=== PATIENT | female | born 1955 | race Caucasian/White ===

== ENCOUNTER 2021-10-31 17:47 | Emergency (ER) | payer MEDICARE ==
[~2021-10-31] VITALS: Ht 165.1 cm; Wt 116.0 kg
[2021-10-31] MEDS ORDERED: MAGNESIUM/ALUMINUM HYDROXIDE/SIMETHICONE 30ML UDC PO STA (17:53)
[2021-10-31] MEDS ORDERED: VISCOUS LIDOCAINE 2% 15 ML UDC PO STA (17:53)
[2021-10-31] MEDS ORDERED: ONDANSETRON HCL 4MG/2ML INJ IV STA (17:53)
[2021-10-31] MEDS ORDERED: PANTOPRAZOLE SODIUM 40 MG/VIAL IV STA (17:53)
[2021-10-31] MEDS ORDERED: SODIUM CHLORIDE 0.9% 1,000 ML IV ONE (18:00)
[2021-10-31 19:50] LABS: BASOPHILS % 0.2 % (0.0-2.0); EOSINOPHILS % 0.1 % (0.0-5.0); HEMATOCRIT. 42.3 % (36.0-48.0); LYMPHOCYTES % 8.4 % (20.0-50.0); MEAN CORPUSCULAR HEMOGLOBIN 26.5 pg (28.0-32.0); MEAN CORPUSCULAR VOLUME 80.3 fL (81.0-99.0); MEAN PLATELET VOLUME 8.6 fl (7.4-10.4); MONOCYTES % 1.7 % (2.0-8.0); NEUTROPHILS % 89.6 % (40.0-76.0); PLATELET 216 x1000/uL (130-400); RED BLOOD CELL COUNT 5.27 mill/uL (4.2-5.4); RED CELL DISTRIBUTION WIDTH 14.6 % (11.6-14.6)
[2021-10-31 19:56] LABS: CHLORIDE 103 mEq/L (98-107)
[2021-10-31 19:59] LABS: INR 0.9; PROTHROMBIN TIME 10.1 sec (9.6-11.0)
[2021-10-31 20:29] LABS: CLARITY URINE CLOUDY (CLEAR); COLOR URINE YELLOW (YELLOW); KETONES URINE 3+ (NEGATIVE); LEUKOCYTE ESTERASE URINE NEGATIVE (NEGATIVE); NITRITE URINE POSITIVE (NEGATIVE); OCCULT BLOOD URINE NEGATIVE (NEGATIVE); PH URINE 7.5 (4.5-8.0); PROTEIN URINE 3+ (NEGATIVE); SPECIFIC GRAVITY URINE 1.026 (1.005-1.030)
[2021-10-31] MEDS ORDERED: MAG355OR21 MT (21:21)
[2021-10-31] MEDS ORDERED: PANT40SU MT (21:21)
[2021-10-31] MEDS ORDERED: ONDA4TAB5 MT (21:21)
[2021-10-31] MEDS ORDERED: CEPH500C2 MT (21:21)
[2021-10-31 22:30] VITALS: BP 159/79
== END 2021-10-31 22:45 | disposition home or self-care (01) ==
LOC: ER 17:47
DX: K29.70 Gastritis, unspecified, without bleeding (principal); N39.0 Urinary tract infection, site not specified; R11.2 Nausea with vomiting, unspecified; E11.9 Type 2 diabetes mellitus without complications; K21.9 Gastro-esophageal reflux disease without esophagitis; E66.9 Obesity, unspecified; Z68.41 Body mass index [BMI] 40.0-44.9, adult
CPT/HCPCS: 36415; 71045; 74176; 80053; 81003; 83605; 83690; 85025; 85610; 96361; 96374; 96375; 99285; J2405; J7030

== ENCOUNTER 2022-07-25 19:09 | Emergency (ER) | payer MEDICARE ==
[~2022-07-25] VITALS: Ht 162.6 cm; Wt 100.0 kg
[~2022-07-25 19:09] MED LIST: CEPH500C2 MT; MAG355OR21 MT; ONDA4TAB5 MT; PANT40SU MT
[2022-07-25] MEDS ORDERED: FLUORESCEIN SODIUM 1MG/STRIP EACHEYE ONE (22:15)
[2022-07-25] MEDS ORDERED: TETRACAINE 0.5% OPHTH DROPS 4ML EACHEYE ONE (22:15)
[2022-07-25 23:38] VITALS: BP 120/65
== END 2022-07-25 23:40 | disposition home or self-care (01) ==
LOC: ER 19:15
DX: H11.32 Conjunctival hemorrhage, left eye (principal); E11.9 Type 2 diabetes mellitus without complications; I10 Essential (primary) hypertension; Z79.899 Other long term (current) drug therapy
CPT/HCPCS: 99283

== ENCOUNTER 2023-01-11 15:50 | Emergency (ER) | payer MEDICARE, MEDICAID ==
[~2023-01-11] VITALS: Ht 162.6 cm; Wt 133.0 kg
[2023-01-11 22:00] VITALS: BP 134/86
[2023-01-11] MEDS ORDERED: KETOROLAC 15MG/ML VIAL IM ONE (22:00)
[2023-01-11] MEDS ORDERED: NAPR-681 MT (23:10)
== END 2023-01-11 23:35 | disposition home or self-care (01) ==
LOC: ER 15:50
DX: M17.0 Bilateral primary osteoarthritis of knee (principal); I10 Essential (primary) hypertension; E11.9 Type 2 diabetes mellitus without complications
CPT/HCPCS: 73562; 96372; 99283; J1885